=== PATIENT | male | born 1960 | race Caucasian/White ===

== ENCOUNTER 2019-04-03 13:21 | Day surgery (SDC) | payer OTHER ==
[2019-04-03] MEDS: LACTATED RINGER'S 1,000 ML IV (14:51)
[2019-04-03] MEDS ORDERED: BUPIVACAINE 0.5% (SDV) 30 ML INJ (16:51)
[2019-04-03] MEDS: POLYMYXIN/BACITRACIN 1L IRRIG (17:22)
[2019-04-03] MEDS ORDERED: PROPOFOL 40 ML (17:25)
[2019-04-03] MEDS ORDERED: DEXAMETHASONE 4 MG/ML 5 ML INJ (17:25)
[2019-04-03] MEDS ORDERED: ONDANSETRON 4 MG INJ (17:25)
[2019-04-03] MEDS ORDERED: LIDOCAINE 2% (SDV) 5 ML INJ (17:25)
[2019-04-03] MEDS ORDERED: CEFAZOLIN 1 GM INJ (17:26)
[2019-04-03] MEDS ORDERED: FENTAnyl 50 MCG/ML VIAL (17:29)
[2019-04-03] MEDS: FENTAnyl 50 MCG/ML VIAL IV ×2 (18:54→19:11)
[2019-04-03] MEDS: HYDROmorphONE 1 MG/5 ML IV SYRINGE IV ×2 (18:55→19:11)
[2019-04-03] MEDS: KETOROLAC 30 MG INJ IV (18:55)
[2019-04-03] MEDS ORDERED: ONDANSETRON 4 MG INJ IV (19:00)
[2019-04-03] MEDS ORDERED: OXYCODONE/ACETAMINOPHEN (5/325) TAB PO ×2 (19:00)
[2019-04-03] MEDS ORDERED: ALBUTEROL 0.083% (NEB) 2.5 MG/3 ML AMP HHN (19:00)
[2019-04-03] MEDS ORDERED: FENTAnyl 50 MCG/ML VIAL IV ×2 (19:00)
[2019-04-03] MEDS ORDERED: EPHEDrine 25 MG/5 ML SYG IV (19:00)
[2019-04-03] MEDS ORDERED: MEPERIDINE 25 MG INJ IV (19:00)
[2019-04-03] MEDS ORDERED: LABETALOL HCL 20MG INJ IV (19:00)
[2019-04-03] MEDS ORDERED: DIPHENHYDRAMINE 50 MG INJ IV (19:00)
[2019-04-03] MEDS ORDERED: HYDROmorphONE 1 MG/5 ML IV SYRINGE IV ×2 (19:00)
[2019-04-03] MEDS ORDERED: hydrALAzine 20 MG INJ IV (19:00)
[2019-04-03] MEDS ORDERED: METOCLOPRAMIDE 10 MG INJ IV (19:00)
== END 2019-04-03 19:45 | disposition home or self-care (01) ==
LOC: SDS 13:21
DX: G56.02 Carpal tunnel syndrome, left upper limb (principal); M19.032 Primary osteoarthritis, left wrist; D17.22 Benign lipomatous neoplasm of skin and subcutaneous tissue of left arm; I10 Essential (primary) hypertension; E66.01 Morbid (severe) obesity due to excess calories; Z68.42 Body mass index [BMI] 45.0-49.9, adult
CPT/HCPCS: 25820; 73110-LT; 88307